=== PATIENT | male | born 1940 | race Caucasian/White ===

== ENCOUNTER 2023-10-17 06:26 | Inpatient (IN) | payer MEDICARE ==
[2023-10-17 07:38] LABS: BASOPHILS PERCENT AUTO 0.5 % (0.0-1.0); EOSINOPHILS ABSOLUTE AUTO 0.1 K/mm3 (0.0-0.4); EOSINOPHILS PERCENT AUTO 1.9 % (0.0-6.0); HEMATOCRIT 37.8 % (42.0-52.0); HEMOGLOBIN 12.3 gm/dl (14.0-18.0); IMMATURE GRAN ABSOLUTE AUTO 0.02 K/mm3 (0.00-0.05); IMMATURE GRAN PERCENT AUTO 0.5 % (0.0-0.4); LYMPHOCYTES ABSOLUTE AUTO 0.3 K/mm3 (1.0-4.8); LYMPHOCYTES PERCENT AUTO 8.5 % (24.0-44.0); MEAN CORPUSCULAR HEMOGLOBIN 29.2 pg (28.0-32.0); MEAN CORPUSCULAR HGB CONC 32.5 g/dl (32.0-36.0); MEAN CORPUSCULAR VOLUME 89.8 fl (83.0-99.0); MEAN PLATELET VOLUME 9.2 fl (9.4-12.4); MONOCYTES ABSOLUTE AUTO 0.4 K/mm3 (0.0-0.8); MONOCYTES PERCENT AUTO 10.9 % (0.0-8.0); NEUTROPHILS ABSOLUTE AUTO 2.8 K/mm3 (1.8-7.7); NEUTROPHILS PERCENT AUTO 77.7 % (41.0-71.0); PLATELET COUNT,PLT 164 K/mm3 (150-400); RED BLOOD CELL COUNT 4.21 M/mm3 (4.52-5.90); WHITE BLOOD CELL COUNT,WBC 3.66 K/mm3 (3.9-11.3)
[2023-10-17 08:01] LABS: ALBUMIN 3.5 g/dl (3.4-5.0); ANION GAP 7.2 (5-15); BILIRUBIN TOTAL 0.6 mg/dL (0.2-1.0); BUN/CREATININE RATIO 16.4 (14-18); CALCIUM 9.1 mg/dL (8.5-10.1); CREATININE 1.4 mg/dL (0.7-1.3); EST CRCL DRUG DOSING (CG) 41.28 mL/min; MAGNESIUM 2.6 mg/dL (1.8-2.4); POTASSIUM,K 3.2 mEq/L (3.5-5.1); PROTEIN TOTAL,TP 6.9 g/dl (6.4-8.2)
[2023-10-17] MEDS: Sodium Chloride 0.9% 10 ML Syringe FLUSH PRN (10:43)
[2023-10-17] MEDS ORDERED: Ondansetron 4 MG Tab.DIS PO PRN (11:06)
[2023-10-17] MEDS ORDERED: Docusate Sodium 100 MG Cap PO PRN (11:06)
[2023-10-17] MEDS ORDERED: Ondansetron 4 MG/2 ML SDV IV PRN (11:06)
[2023-10-17 11:22] LABS: INR 2.17; PROTHROMBIN TIME 21.9 SECONDS (9.7-12.0)
[2023-10-17] MEDS ORDERED: Albuterol 0.083% 2.5 MG/3 ML Neb Soln NEB PRN (12:22)
[2023-10-17] MEDS: Potassium Chloride 20 MEQ Tab.ER PO ONE (13:04)
[2023-10-17] MEDS: Acetaminophen 325 MG Tab PO PRN (13:04)
[2023-10-17] MEDS: traMADol 50 MG Tab PO PRN (13:05)
[2023-10-17] MEDS ORDERED: Potassium Chloride 20 MEQ Tab.ER PO SCH (15:00)
[2023-10-17] MEDS: Diclofenac Sodium 1% Gel 100 GM Tube TOP SCH (15:45)
[2023-10-17] MEDS: HYDROmorphone 0.5 MG/0.5 ML Syringe IVPUSH PRN (16:08)
[2023-10-17] MEDS: Lactated Ringers 1,000 ML IV SCH (16:09)
[2023-10-17] MEDS: Warfarin 3 MG Tab PO SCH (17:01)
[2023-10-17] MEDS: Potassium Chloride 20 MEQ Tab.ER PO SCH (20:39)
[2023-10-18 04:54] LABS: BASOPHILS PERCENT AUTO 0.6 % (0.0-1.0); EOSINOPHILS ABSOLUTE AUTO 0.2 K/mm3 (0.0-0.4); EOSINOPHILS PERCENT AUTO 3.7 % (0.0-6.0); HEMATOCRIT 37.8 % (42.0-52.0); IMMATURE GRAN ABSOLUTE AUTO 0.01 K/mm3 (0.00-0.05); IMMATURE GRAN PERCENT AUTO 0.2 % (0.0-0.4); LYMPHOCYTES ABSOLUTE AUTO 0.4 K/mm3 (1.0-4.8); LYMPHOCYTES PERCENT AUTO 7.8 % (24.0-44.0); MEAN CORPUSCULAR HEMOGLOBIN 28.7 pg (28.0-32.0); MEAN CORPUSCULAR HGB CONC 31.7 g/dl (32.0-36.0); MEAN CORPUSCULAR VOLUME 90.4 fl (83.0-99.0); MEAN PLATELET VOLUME 9.7 fl (9.4-12.4); MONOCYTES ABSOLUTE AUTO 0.5 K/mm3 (0.0-0.8); MONOCYTES PERCENT AUTO 8.7 % (0.0-8.0); NEUTROPHILS ABSOLUTE AUTO 4.3 K/mm3 (1.8-7.7); PLATELET COUNT,PLT 144 K/mm3 (150-400); RED BLOOD CELL COUNT 4.18 M/mm3 (4.52-5.90); WHITE BLOOD CELL COUNT,WBC 5.38 K/mm3 (3.9-11.3)
[2023-10-18 05:12] LABS: INR 2.45; PROTHROMBIN TIME 24.5 SECONDS (9.7-12.0)
[2023-10-18 05:24] LABS: A/G RATIO 0.9 (1-2); ALBUMIN 3.1 g/dl (3.4-5.0); ANION GAP 8.7 (5-15); BILIRUBIN TOTAL 0.7 mg/dL (0.2-1.0); BUN/CREATININE RATIO 16.7 (14-18); CALCIUM 9.2 mg/dL (8.5-10.1); CREATININE 1.2 mg/dL (0.7-1.3); EST CRCL DRUG DOSING (CG) 48.16 mL/min; MAGNESIUM 2.4 mg/dL (1.8-2.4); POTASSIUM,K 3.7 mEq/L (3.5-5.1); PROTEIN TOTAL,TP 6.6 g/dl (6.4-8.2)
[2023-10-18] MEDS: oxyCODONE 5 MG Tab PO PRN (07:07)
[2023-10-18] MEDS: Levothyroxine 50 MCG Tab PO SCH (08:42)
[2023-10-18] MEDS: Rosuvastatin 10 MG Tab PO SCH (08:42)
[2023-10-18] MEDS: Spironolactone 25 MG Tab PO SCH (08:42)
[2023-10-18] MEDS: rOPINIRole 0.25 MG Tab PO SCH (08:42)
[2023-10-18] MEDS: Torsemide 20 MG Tab PO SCH (08:43)
[2023-10-18] MEDS: Empagliflozin 10 MG Tab PO SCH (08:43)
[2023-10-18] MEDS: Polyethylene Glycol 3350 Powder 17 GM Packet PO SCH (08:43)
[2023-10-18] MEDS: Hydroxychloroquine 200 MG Tab PO SCH (08:43)
[2023-10-18] MEDS ORDERED: Spironolactone 25 MG Tab PO SCH (09:00)
[2023-10-18] MEDS ORDERED: rOPINIRole 0.25 MG Tab PO SCH (09:00)
[2023-10-18] MEDS ORDERED: TAFAMIDIS 61 MG PO SCH (09:00)
[2023-10-18] MEDS ORDERED: ROPINIROLE HCL 0.5 MG PO SCH (09:00)
[2023-10-18] MEDS: Lidocaine 4% 1 each Patch TOP SCH (09:18)
[2023-10-18] MEDS: Acetaminophen 325 MG Tab PO SCH (14:36)
[2023-10-18] MEDS: Warfarin 3 MG Tab PO SCH (18:03)
[2023-10-18] MEDS: Docusate Sodium 100 MG Cap PO SCH (20:01)
[2023-10-19 04:50] LABS: BASOPHILS PERCENT AUTO 0.6 % (0.0-1.0); EOSINOPHILS ABSOLUTE AUTO 0.3 K/mm3 (0.0-0.4); EOSINOPHILS PERCENT AUTO 5.2 % (0.0-6.0); HEMATOCRIT 37.5 % (42.0-52.0); HEMOGLOBIN 11.8 gm/dl (14.0-18.0); IMMATURE GRAN ABSOLUTE AUTO 0.01 K/mm3 (0.00-0.05); IMMATURE GRAN PERCENT AUTO 0.2 % (0.0-0.4); LYMPHOCYTES ABSOLUTE AUTO 0.4 K/mm3 (1.0-4.8); LYMPHOCYTES PERCENT AUTO 8.6 % (24.0-44.0); MEAN CORPUSCULAR HEMOGLOBIN 28.5 pg (28.0-32.0); MEAN CORPUSCULAR HGB CONC 31.5 g/dl (32.0-36.0); MEAN CORPUSCULAR VOLUME 90.6 fl (83.0-99.0); MEAN PLATELET VOLUME 9.7 fl (9.4-12.4); MONOCYTES ABSOLUTE AUTO 0.5 K/mm3 (0.0-0.8); MONOCYTES PERCENT AUTO 11.1 % (0.0-8.0); NEUTROPHILS ABSOLUTE AUTO 3.5 K/mm3 (1.8-7.7); NEUTROPHILS PERCENT AUTO 74.3 % (41.0-71.0); PLATELET COUNT,PLT 124 K/mm3 (150-400); RED BLOOD CELL COUNT 4.14 M/mm3 (4.52-5.90); WHITE BLOOD CELL COUNT,WBC 4.77 K/mm3 (3.9-11.3)
[2023-10-19 05:11] LABS: INR 3.1; PROTHROMBIN TIME 30.5 SECONDS (9.7-12.0)
[2023-10-19 05:27] LABS: A/G RATIO 0.8 (1-2); ALBUMIN 2.9 g/dl (3.4-5.0); ANION GAP 9.6 (5-15); BILIRUBIN TOTAL 0.7 mg/dL (0.2-1.0); BUN/CREATININE RATIO 19.2 (14-18); CALCIUM 8.8 mg/dL (8.5-10.1); CREATININE 1.2 mg/dL (0.7-1.3); EST CRCL DRUG DOSING (CG) 48.16 mL/min; MAGNESIUM 2.6 mg/dL (1.8-2.4); POTASSIUM,K 4.6 mEq/L (3.5-5.1); PROTEIN TOTAL,TP 6.4 g/dl (6.4-8.2)
[2023-10-19] MEDS: oxyCODONE 5 MG Tab PO PRN (11:56)
[2023-10-19] MEDS: Sennosides/Docusate Sodium 50-8.6 MG Tab PO SCH (16:27)
[2023-10-19] MEDS: Warfarin** 1 MG TABLET PO SCH (17:47)
[2023-10-20 05:09] LABS: INR 3.07; PROTHROMBIN TIME 30.2 SECONDS (9.7-12.0)
[2023-10-20] MEDS: Cyclobenzaprine 10 MG Tab PO PRN (13:58)
[2023-10-20] MEDS: Warfarin** 1 MG TABLET PO SCH (17:59)
[2023-10-21 05:30] LABS: INR 2.33; PROTHROMBIN TIME 23.4 SECONDS (9.7-12.0)
[2023-10-21] MEDS: TAFAMIDIS 61 MG PO SCH (08:11)
[2023-10-21] MEDS ORDERED: TAFAMIDIS 61 MG PO SCH (09:00)
[2023-10-21] MEDS ORDERED: oxyCODONE 5 MG Tab PO PRN (09:12)
[2023-10-21] MEDS: Warfarin 5 MG Tab PO SCH (17:55)
[2023-10-22 06:03] LABS: INR 2.14; PROTHROMBIN TIME 21.6 SECONDS (9.7-12.0)
[2023-10-22] MEDS: Methocarbamol 500 MG Tab PO PRN (09:20)
[2023-10-22] MEDS: oxyCODONE ER 10 MG TAB.ER PO SCH (09:24)
[2023-10-22] MEDS: Warfarin 3 MG Tab PO SCH (18:20)
[2023-10-23 06:02] LABS: INR 2.04; PROTHROMBIN TIME 20.7 SECONDS (9.7-12.0)
[2023-10-23] MEDS: Warfarin 3 MG Tab PO SCH (17:24)
[2023-10-24 06:03] LABS: INR 2.35; PROTHROMBIN TIME 23.6 SECONDS (9.7-12.0)
[2023-10-24] MEDS: Warfarin 3 MG Tab PO SCH (18:13)
[2023-10-25 07:53] VITALS: BP 120/56; PULSE 63
[2023-10-25 10:47] LABS: INR 2.21; PROTHROMBIN TIME 22.3 SECONDS (9.7-12.0)
[2023-10-25] MEDS ORDERED: Warfarin 3 MG Tab PO SCH (18:00)
== END 2023-10-25 12:33 | DRG 560 ==
LOC: JD.ED 06:26 → JD.MS 11:06 → OBSVTOIN 13:19
PROVIDERS: ADMIT Hospitalist; ATTEND Internal Medicine
DX: S70.02XA Contusion of left hip, initial encounter (principal); Z88.1 Allergy status to other antibiotic agents; M97.02XA Periprosthetic fracture around internal prosthetic left hip joint, initial encounter; I50.32 Chronic diastolic (congestive) heart failure; Z79.890 Hormone replacement therapy; S70.12XA Contusion of left thigh, initial encounter; W01.0XXA Fall on same level from slipping, tripping and stumbling without subsequent striking against object, initial encounter; J45.30 Mild persistent asthma, uncomplicated; I48.91 Unspecified atrial fibrillation; E78.5 Hyperlipidemia, unspecified; E03.9 Hypothyroidism, unspecified; M06.9 Rheumatoid arthritis, unspecified; W18.30XA Fall on same level, unspecified, initial encounter; N18.31 Chronic kidney disease, stage 3a; E87.6 Hypokalemia; D64.9 Anemia, unspecified; Z66 Do not resuscitate; Z88.0 Allergy status to penicillin; Z88.8 Allergy status to other drugs, medicaments and biological substances; Z79.899 Other long term (current) drug therapy; Z79.01 Long term (current) use of anticoagulants; Z95.0 Presence of cardiac pacemaker
CPT/HCPCS: 36415; 72192; 73502; 73700; 80053; 83735; 85025; 85610; 97161; 99285; A9270 ×3; J3490; U0002; 94667; 94668; 94760; 94761; 97110-GP; 99223; 99232; 99239; 99284; J1170; J7120

== ENCOUNTER 2024-02-07 17:51 | Emergency (ER) | payer MEDICARE ==
[2024-02-07 18:51] LABS: BASOPHILS PERCENT AUTO 0.6 % (0.0-1.0); EOSINOPHILS ABSOLUTE AUTO 0.3 K/mm3 (0.0-0.4); EOSINOPHILS PERCENT AUTO 8.3 % (0.0-6.0); HEMATOCRIT 34.9 % (42.0-52.0); HEMOGLOBIN 10.6 gm/dl (14.0-18.0); IMMATURE GRAN ABSOLUTE AUTO 0.02 K/mm3 (0.00-0.05); IMMATURE GRAN PERCENT AUTO 0.6 % (0.0-0.4); LYMPHOCYTES ABSOLUTE AUTO 0.4 K/mm3 (1.0-4.8); LYMPHOCYTES PERCENT AUTO 12.6 % (24.0-44.0); MEAN CORPUSCULAR HEMOGLOBIN 28.1 pg (28.0-32.0); MEAN CORPUSCULAR HGB CONC 30.4 g/dl (32.0-36.0); MEAN CORPUSCULAR VOLUME 92.6 fl (83.0-99.0); MEAN PLATELET VOLUME 9.1 fl (9.4-12.4); MONOCYTES ABSOLUTE AUTO 0.5 K/mm3 (0.0-0.8); MONOCYTES PERCENT AUTO 15.1 % (0.0-8.0); NEUTROPHILS ABSOLUTE AUTO 2.2 K/mm3 (1.8-7.7); NEUTROPHILS PERCENT AUTO 62.8 % (41.0-71.0); PLATELET COUNT,PLT 195 K/mm3 (150-400); RED BLOOD CELL COUNT 3.77 M/mm3 (4.52-5.90)
[2024-02-07] MEDS: Sodium Chloride 0.9% 10 ML Syringe FLUSH PRN (18:58)
[2024-02-07 19:09] LABS: INR 2.21; PROTHROMBIN TIME 22.2 SECONDS (9.7-12.0)
[2024-02-07 19:21] LABS: A/G RATIO 0.9 (1-2); ALBUMIN 3.3 g/dl (3.4-5.0); ANION GAP 6.8 (5-15); BILIRUBIN TOTAL 0.3 mg/dL (0.2-1.0); BUN/CREATININE RATIO 15.7 (14-18); C-REACTIVE PROTEIN 0.72 mg/dL (<0.30); CALCIUM 8.8 mg/dL (8.5-10.1); CREATININE 1.4 mg/dL (0.7-1.3); EST CRCL DRUG DOSING (CG) 40.56 mL/min; POTASSIUM,K 3.8 mEq/L (3.5-5.1); PROTEIN TOTAL,TP 7.1 g/dl (6.4-8.2)
[2024-02-07 22:41] VITALS: BP 115/61; PULSE 59
== END 2024-02-07 22:00 | disposition home or self-care (01) ==
LOC: JD.ED 17:51
DX: R60.0 Localized edema (principal); I50.32 Chronic diastolic (congestive) heart failure; Z88.1 Allergy status to other antibiotic agents; Z88.8 Allergy status to other drugs, medicaments and biological substances; Z79.890 Hormone replacement therapy; Z79.01 Long term (current) use of anticoagulants; Z79.899 Other long term (current) drug therapy
CPT/HCPCS: 36415; 71045; 80053; 83605; 83880; 84484; 85025; 85610; 86140; 87040; 93005; 99284; J3490; 93010